=== PATIENT | female | born 1945 | race American Indian/Alaskan Native ===

== ENCOUNTER 2016-06-27 08:49 | Outpatient (CLI) | payer MEDICARE, OTHER ==
[2016-06-27 09:41] LABS: Blood Urea Nitrogen 10 mg/dL (7-17)
--- NOTE | 2016-06-27 12:16 | Cat Scan Report ---
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 Technique: Helical CT following IV contrast. Sagittal and coronal reformatted images. 3-dimensional volume rendering technique. NASCET criteria was utilized. Findings: The visualized distal abdominal aorta, common iliac arteries, external iliac arteries, internal iliac arteries and proximal superficial femoral arteries are widely patent and demonstrate less than 20% stenosis. A venous stent extending throughout the left common iliac vein and left external iliac vein is in position. Delayed images were obtained but there is poor opacification of the venous structures. The stent appears to be patent. An IVC filter is also partially imaged in the lower IVC. Impression: Unremarkable exam. No arterial stenosis is appreciated. Left common and external iliac venous stent is poorly evaluated on this exam but appears to be patent.
== END 2016-06-27 08:50 | disposition home or self-care (01) ==
LOC: CT 08:49
PROVIDERS: ATTEND Surgery Vascular Surgery
DX: I87.022 Postthrombotic syndrome with inflammation of left lower extremity (principal); I87.1 Compression of vein; I87.2 Venous insufficiency (chronic) (peripheral); T82.898A Other specified complication of vascular prosthetic devices, implants and grafts, initial encounter; M25.562 Pain in left knee; R10.9 Unspecified abdominal pain
CPT/HCPCS: 36415; 72191; 82565; 84520; Q9967

== ENCOUNTER 2017-04-25 08:08 | Outpatient (CLI) | payer MEDICARE, OTHER ==
--- NOTE | 2017-04-25 15:09 | XRay Report ---
X-RAY LEFT TOES THREE VIEWS: 04/25/17 CLINICAL: Injury and pain. FINDINGS: Mild osteopenia. A prominent oblique lucency and a more horizontal lucency of the proximal phalanx of the fourth toe are consistent with nondisplaced acute or subacute fractures. No other fractures are identified. There is mild soft tissue swelling of the fourth toe. The joint spaces are normal. No soft tissue air or foreign body. IMPRESSION: Nondisplaced acute or subacute traumatic closed fractures of the proximal phalanx of the fourth toe.
--- NOTE | 2017-04-25 15:12 | XRay Report ---
XRAY LEFT HIP THREE VIEWS: 04/25/17 08:08:00 CLINICAL: Left hip pain. COMPARISON: 09/15/15 FINDINGS: No fracture or dislocation. Mild arthritis of the hip with mild joint space narrowing and acetabular urination. Similar changes in the right hip. Normal femoral head contours and density. The pelvic bones are intact. A sclerotic lesion of the right superior acetabulum is unchanged compared to the prior exam. Bilateral SI joint sclerosis with no erosions. A left iliofemoral venous stent and an IVC filter. IMPRESSION: Mild arthritis. Bilateral sacroiliitis.
== END 2017-04-25 08:09 | disposition home or self-care (01) ==
LOC: SPVIMAG 08:08
PROVIDERS: ATTEND Family Medicine
DX: S92.512A Displaced fracture of proximal phalanx of left lesser toe(s), initial encounter for closed fracture (principal); M16.12 Unilateral primary osteoarthritis, left hip; M46.1 Sacroiliitis, not elsewhere classified; M85.88 Other specified disorders of bone density and structure, other site; X58.XXXA Exposure to other specified factors, initial encounter; Y93.89 Activity, other specified; Y92.89 Other specified places as the place of occurrence of the external cause; Y99.8 Other external cause status

== ENCOUNTER 2017-06-06 14:54 | Outpatient (CLI) | payer MEDICARE, OTHER ==
--- NOTE | 2017-06-06 17:19 | XRay Report ---
FINAL REPORT EXAM: XR SPINE CERVICAL 2-3V HISTORY: NECK PAIN TECHNIQUE: Cervical spine five views PRIORS: None. FINDINGS: Vertebral bodies demonstrate normal height and alignment. There is disc space narrowing with anterior osteophytes C3-C4 through C6-C7 most prominent at C5-C6 and C6-C7. The facet joints demonstrate normal alignment. The spinous processes are intact. Craniocervical junction is unremarkable. C1 and C2 are intact. IMPRESSION: Multilevel degenerative disc disease most prominent at C5-C6 and C6-C7
== END 2017-06-06 14:55 | disposition home or self-care (01) ==
LOC: SPVIMAG 14:54
PROVIDERS: ATTEND Physical Medicine & Rehabilitation
DX: M50.322 Other cervical disc degeneration at C5-C6 level (principal); M50.323 Other cervical disc degeneration at C6-C7 level
CPT/HCPCS: 72040

== ENCOUNTER 2017-08-08 07:55 | Outpatient (CLI) | payer MEDICARE, OTHER ==
--- NOTE | 2017-08-08 16:04 | Mammography Report ---
BONE DEXA:08/08/17 07:55:00 CLINICAL: Postmenopausal. No comparison. TECHNIQUE: Two site bone DEXA performed on an Hologic scanner. FINDINGS: The average BMD of the lumbar spine L1-L4 is 0.693g/cm squared with a T-score of -4.2 and a Z-score of -1.7. The average BMD of the left hip is 0.607g/cm squared with a T-score of -2.7 and a Z-score of -1.5. IMPRESSION: WHO classification: Osteoporosis with high fracture risk based on of spine and left hip measurements. RECOMMENDATION: Clinical correlation and routine screening. DEFINITIONS: BMD = Bone Mineral Density T-score = BMD related to mean peak bone mass of young adult (mean expressed in Standard Deviation) Z-score = Age matched BMD expressed in SD World Health Organization (WHO) Diagnostic Criteria Normal T-score > -1 SD Osteopenia T-score between -1 and -2.4 SD Osteoporosis T-score -2.5 SD or below NOTE: BMD is not the only risk factor for fracture. One should also consider factors such as the patient's age, risk of falling, previous osteoporotic fracture, family history of osteoporotic fractures, current smoker, and low body weight. Z-scores are not calculated if >80 years of age.
--- NOTE | 2017-08-08 16:06 | Mammography Report ---
BILATERAL DIGITAL SCREENING MAMMOGRAM with CAD : 08/08/17 07:55:00 CLINICAL: Routine screening. COMPARISON:None available. FINDINGS: The breasts are heterogeneously dense, which may obscure small masses.Bilateral benign vascular calcifications. No mass, architectural distortion or suspicious calcifications. IMPRESSION: No mammographic evidence of malignancy. BI-RADS CATEGORY: 2 -- Benign RECOMMENDATION: Routine mammographic screening in one year. COMMENT: Patient follow-up letters are generated by our [employer] application.
== END 2017-08-08 07:56 | disposition home or self-care (01) ==
LOC: SPVWC 07:55
PROVIDERS: ATTEND Family Medicine
DX: Z12.31 Encounter for screening mammogram for malignant neoplasm of breast (principal); M81.0 Age-related osteoporosis without current pathological fracture; Z78.0 Asymptomatic menopausal state
CPT/HCPCS: 77067; 77080

== ENCOUNTER 2017-09-08 20:47 | Emergency (ER) | payer MEDICARE, OTHER ==
[2017-09-08 21:20] VITALS: BP 111/69
--- NOTE | 2017-09-08 23:19 | XRay Report ---
FINAL REPORT PROCEDURE: XR TIBIA FIBULA 2V LT TECHNIQUE: LEFT tibia and fibula radiographs, AP and lateral views. CPT 88781 HISTORY: fall; PAIN IN LEFT LOWER LEG; pt states left tibfib pain post fall x 1 day ago; hx of blood clots; has 5stents placed in left leg COMPARISON: No prior studies are available for comparison. FINDINGS: Fracture (s) and/or Dislocation(s): None . Joint space(s): Normal . Soft tissues: Normal . Bone mineralization: Normal . Foreign bodies: None . IMPRESSION: Normal Examination.
== END 2017-09-09 07:08 | disposition left against medical advice (07) ==
LOC: ED 20:47
DX: M79.605 Pain in left leg (principal); Z53.21 Procedure and treatment not carried out due to patient leaving prior to being seen by health care provider
CPT/HCPCS: 36415; 85379

== ENCOUNTER 2018-08-09 10:08 | Day surgery (SDC) | payer MEDICARE, OTHER ==
[2018-08-09] MEDS ORDERED: IOPIDINE OS ONE ×2 (10:53→11:53)
[2018-08-09] MEDS ORDERED: MYDRIACYL OS ONE (10:53)
[2018-08-09] MEDS ORDERED: NEOFRIN OS ONE (10:53)
[2018-08-09 11:03] VITALS: BP 152/71
== END 2018-08-09 11:56 | disposition home or self-care (01) ==
LOC: OR 10:08
PROVIDERS: ATTEND Specialist
DX: H26.492 Other secondary cataract, left eye (principal); Z88.8 Allergy status to other drugs, medicaments and biological substances; Z88.5 Allergy status to narcotic agent; Z79.82 Long term (current) use of aspirin; Z79.899 Other long term (current) drug therapy; Z86.718 Personal history of other venous thrombosis and embolism; Z98.49 Cataract extraction status, unspecified eye; G43.909 Migraine, unspecified, not intractable, without status migrainosus; Z90.710 Acquired absence of both cervix and uterus; Z98.890 Other specified postprocedural states; Z86.2 Personal history of diseases of the blood and blood-forming organs and certain disorders involving the immune mechanism

== ENCOUNTER 2020-06-25 14:45 | Outpatient (CLI) | payer MEDICARE, OTHER ==
--- NOTE | 2020-06-25 18:05 | Mammography Report ---
RIGHT DIGITAL DIAGNOSTIC MAMMOGRAM WITH CAD , 06/25/2020 RIGHT LIMITED BREAST ULTRASOUND CLINICAL INFORMATION / INDICATION: The patient has a history of right breast nodule at the 6:00 posit ion. She presents for short-term follow-up evaluation. She reports no new breast symptoms. TECHNIQUE: Digital right mammographic imaging was performed. Limited ultrasound was performed. This e xamination was interpreted with the benefit of Computer-Aided Detection (CAD) analysis. COMPARISON: Bilateral mammogram, 02/11/2020 [facility]. Right galina ast ultrasound, 05/12/2020 and 04/09/2020 FINDINGS: Breast Density: The breasts are heterogeneously dense, which may obscure small masses. MAMMOGRAPHIC FINDINGS: No dominant mass, suspicious calcifications, or architectural distortion in th e right breast. Atherosclerotic vascular calcifications are again noted. ULTRASOUND FINDINGS: Targeted ultrasound evaluation was performed of the area of interest. Sonograp hic evaluation of the right breast at 6:00 position 1 cm from the nipple demonstrates a circumscribed oval hypoechoic nodule with no associated vascularity and increased through transmission measuring 1 .1 x 0.6 cm. This has not significantly changed when compared to prior breast ultrasounds performed a t an outside facility. No new or suspicious solid mass is visualized. IMPRESSION: No mammographic or sonographic evidence of malignancy. The nodule in the right breast con tinues to have a benign appearance and is most compatible with a mildly complicated cyst. Follow up recommendation: Routine yearly BI-RADS Category 2: Benign. A "normal" or negative report should not discourage follow up or biopsy of a clinically significant f inding. A written summary of these findings will be mailed to the patient. The patient will be entered into a mammography reporting system which will generate a reminder letter for the patient's next appointmen t at the appropriate interval. According to the [employer], yearly mammograms are recommended starting at age 40 and continuing as long as a woman is in good health. Breast MRI is recommended for women with an antoine roximately 20-25% or greater lifetime risk of breast cancer, including women with a strong family his tory of breast or ovarian cancer and women who have been treated for Hodgkin's disease. Signer Name: Rehana Miller MD Signed: 06/25/2020 6:01 PM Workstation Name: [id number]
== END 2020-06-25 14:46 | disposition home or self-care (01) ==
LOC: SPVWC 14:45
PROVIDERS: ATTEND Surgery
DX: N63.41 Unspecified lump in right breast, subareolar (principal)

== ENCOUNTER 2021-06-07 09:37 | Outpatient (CLI) | payer MEDICARE, OTHER ==
--- NOTE | 2021-06-08 16:05 | Mammography Report ---
DIGITAL SCREENING MAMMOGRAM WITH CAD, 06/07/2021 CLINICAL INFORMATION / INDICATION: Routine screening TECHNIQUE: Digital bilateral 2D mammography was obtained in the craniocaudal and mediolateral obliqu e projections. This examination was interpreted with the benefit of Computer-Aided Detection analysis . COMPARISON: 02/11/2020 FINDINGS: Breast Density: The breasts are heterogeneously dense, which may obscure small masses. No dominant mass, suspicious calcifications, or architectural distortion in either breast. Moderate arterial calcifications are again seen. IMPRESSION: No mammographic evidence of malignancy. Follow up recommendation: Routine yearly BI-RADS Category 2: BENIGN. A "normal" or negative report should not discourage follow up or biopsy of a clinically significant f inding. A written summary of these findings will be mailed to the patient. The patient will be entered into a mammography reporting system which will generate a reminder letter for the patient's next appointmen t at the appropriate interval. The [employer] recommends yearly mammograms starting at age 40 and continuing as l richy as a woman is in good health. Breast MRI is recommended for women with an approximate 20-25% or greater lifetime risk of breast cancer, including women with a strong family history of breast or ova reginald cancer or who have been treated for Hodgkin's disease. Signer Name: Terrell Sweeney MD Signed: 06/08/2021 4:01 PM Workstation Name: [id number]
== END 2021-06-07 09:38 | disposition home or self-care (01) ==
LOC: MAMMO 09:37
PROVIDERS: ATTEND Surgery
DX: Z12.31 Encounter for screening mammogram for malignant neoplasm of breast (principal); N64.89 Other specified disorders of breast
CPT/HCPCS: 77067